=== PATIENT | female | born 1955 | race Caucasian/White ===

== ENCOUNTER 2021-08-25 15:46 | Emergency (ER) | payer MEDICARE, OTHER ==
[~2021-08-25] VITALS: Ht 160 cm; Wt 58.9 kg
--- NOTE | 2021-08-25 16:26 | ED General ---
General Stated Complaint: N/V, DIARRHEA, FEVER, COUGH Source of Information: Patient, Family Exam Limitations: No Limitations History of Present Illness Date Seen by Provider: Aug 25, 2021 Time Seen by Provider: 16:24 Initial Comments To ER by private vehicle from home with reports of diffuse lower abdominal cramping, nausea vomiting diarrhea that began on Sunday of this week (today being ). She is had chills. No cough. She does report body aches. She is not vaccinated against Covid. She is just got here from [place] about a week ago on Sunday with her family for the holidays. Due to the nausea and vomiting she was unable to take her medications for 48 hours now including clonazepam and Effexor. Timing/Duration: 3-4 Days Severity: Moderate Associated Systoms: Headaches, Nausea/Vomiting, Weakness Allergies and Home Medications Allergies Coded Allergies: codeine (Verified Allergy, Unknown, 08/25/21) hydrocodone (Verified Allergy, Unknown, 08/25/21) Patient Home Medication List Home Medication List Reviewed: Yes Review of Systems Review of Systems Constitutional: see HPI, chills, malaise, weakness EENTM: see HPI Respiratory: see HPI; No cough; short of breath Cardiovascular: no symptoms reported Genitourinary: no symptoms reported Musculoskeletal: no symptoms reported Skin: no symptoms reported Psychiatric/Neurological: No Symptoms Reported Hematologic/Lymphatic: No Symptoms Reported Immunological/Allergic: no symptoms reported Physical Exam Vital Signs Vital Signs - First Documented 08/25/21 16:18 Temp 38.1 Pulse 105 Resp 20 B/P (MAP) 175/86 (115) Pulse Ox 95 O2 Delivery Room Air Capillary Refill : Height, Weight, BMI Height: '" Weight: lbs. oz. kg; BMI Method: General Appearance: No Apparent Distress, WD/WN, Anxious, Other (She is ambulatory from the waiting room to room 9 without assistance. Heart rate is 105, oxygen 93 to 98% on room air. Alert and oriented GCS 15. Anxious appearing.) Eyes: Bilateral Eye Normal Inspection, Bilateral Eye PERRL, Bilateral Eye EOMI Neck: Full Range of Motion, Normal Inspection Respiratory: No Accessory Muscle Use, No Respiratory Distress Cardiovascular: Normal Peripheral Pulses, Tachycardia Gastrointestinal: Normal Bowel Sounds, Soft, Tenderness (Suprapubic) Extremity: Normal Capillary Refill, Normal Inspection Neurologic/Psychiatric: Alert, Oriented x3 Skin: Normal Color, Warm/Dry Progress/Results/Core Measures Suspected Sepsis SIRS Temperature: Pulse: Respiratory Rate: Laboratory Tests 08/25/21 16:34: White Blood Count 5.7 Blood Pressure / Mean: Laboratory Tests 08/25/21 16:34: Creatinine 0.80, INR Comment 0.9, Platelet Count 174, Total Bilirubin 0.5 Results/Orders Lab Results Laboratory Tests Test 08/25/21 16:34 08/25/21 18:08 Range/Units White Blood Count 5.7 4.3-11.0 10^3/uL Red Blood Count 4.16 3.80-5.11 10^6/uL Hemoglobin 14.1 11.5-16.0 g/dL Hematocrit 40 35-52 % Mean Corpuscular Volume 95 80-99 fL Mean Corpuscular Hemoglobin 34 25-34 pg Mean Corpuscular Hemoglobin Concent 36 32-36 g/dL Red Cell Distribution Width 11.6 10.0-14.5 % Platelet Count 174 130-400 10^3/uL Mean Platelet Volume 9.3 9.0-12.2 fL Immature Granulocyte % (Auto) 0 % Neutrophils (%) (Auto) 61 42-75 % Lymphocytes (%) (Auto) 20 12-44 % Monocytes (%) (Auto) 17 H 0-12 % Eosinophils (%) (Auto) 1 0-10 % Basophils (%) (Auto) 1 0-10 % Neutrophils # (Auto) 3.5 1.8-7.8 10^3/uL Lymphocytes # (Auto) 1.2 1.0-4.0 10^3/uL Monocytes # (Auto) 1.0 0.0-1.0 10^3/uL Eosinophils # (Auto) 0.0 0.0-0.3 10^3/uL Basophils # (Auto) 0.0 0.0-0.1 10^3/uL Immature Granulocyte # (Auto) 0.0 0.0-0.1 10^3/uL Prothrombin Time 12.1 L 12.2-14.7 SEC INR Comment 0.9 0.8-1.4 Sodium Level 134 L 135-145 MMOL/L Potassium Level 2.9 L 3.6-5.0 MMOL/L Chloride Level 96 L 98-107 MMOL/L Carbon Dioxide Level 22 21-32 MMOL/L Anion Gap 16 H 5-14 MMOL/L Blood Urea Nitrogen 23 H 7-18 MG/DL Creatinine 0.80 0.60-1.30 MG/DL Estimat Glomerular Filtration Rate 71 BUN/Creatinine Ratio 29 Glucose Level 102 70-105 MG/DL Calcium Level 9.4 8.5-10.1 MG/DL Corrected Calcium 9.1 8.5-10.1 MG/DL Total Bilirubin 0.5 0.1-1.0 MG/DL Aspartate Amino Transf (AST/SGOT) 14 5-34 U/L Alanine Aminotransferase (ALT/SGPT) 16 0-55 U/L Alkaline Phosphatase 48 40-136 U/L B-Type Natriuretic Peptide < 10.0 <100.0 PG/ML Total Protein 7.4 6.4-8.2 GM/DL Albumin 4.4 3.2-4.5 GM/DL Lipase 16 8-78 U/L Influenza Type A (RT-PCR) Not Detected Not Detecte Influenza Type B (RT-PCR) Not Detected Not Detecte SARS-CoV-2 RNA (RT-PCR) Not Detected Not Detecte Urine Color YELLOW Urine Clarity CLEAR Urine pH 6.0 5-9 Urine Specific [place] 1.010 L 1.016-1.022 Urine Protein NEGATIVE NEGATIVE Urine Glucose (UA) NEGATIVE NEGATIVE Urine Ketones TRACE H NEGATIVE Urine Nitrite NEGATIVE NEGATIVE Urine Bilirubin NEGATIVE NEGATIVE Urine Urobilinogen 0.2 < = 1.0 MG/DL Urine Leukocyte Esterase NEGATIVE NEGATIVE Urine RBC (Auto) 1+ H NEGATIVE Urine RBC 0-2 /HPF Urine WBC 2-5 /HPF Urine Crystals PRESENT H /LPF Urine Amorphous Sediment FEW MADDY URATES H /LPF Urine Bacteria TRACE /HPF Urine Casts NONE /LPF Urine Mucus NEGATIVE /LPF Urine Culture Indicated NO My Orders Orders - JIM ALDRIDGE APRN Covid 19 Inhouse Test (08/25/21 15:51) Cbc With Automated Diff (08/25/21 16:22) Comprehensive Metabolic Panel (08/25/21 16:22) Ed Iv/Invasive Line Start (08/25/21 16:22) Lipase (08/25/21 16:22) Protime With Inr (08/25/21 16:22) Lactated Ringers (Lr 1000 Ml Iv Solution (08/25/21 16:30) Ondansetron Injection (Zofran Injectio (08/25/21 16:30) Hyoscyamine Sl Tablet (Levsin Sl Tablet) (08/25/21 16:30) Lorazepam Injection (Ativan Injection) (08/25/21 16:30) Bnp Corey (08/25/21 16:23) Chest 1 View, Ap/Pa Only (08/25/21 16:23) Ua Culture If Indicated (08/25/21 16:27) Potassium Chloride (Tablet) (K Dur Table (08/25/21 17:30) Influenza A And B By Pcr (08/25/21 17:34) Ct Abdomen/Pelvis W (08/25/21 17:45) Iohexol Injection (Omnipaque 350 Mg/Ml 1 (08/25/21 18:00) Received Contrast (Hold Metformin- Contr (08/25/21 18:00) Ns (Ivpb) (Sodium Chloride 0.9% Ivpb Bag (08/25/21 18:00) Ns Iv 500 Ml (Sodium Chloride 0.9%) (08/25/21 18:15) Medications Given in ED Current Medications Medications Dose Ordered Sig/Klaus Route Start Time Stop Time Status Last Admin Dose Admin Hyoscyamine Sulfate 0.125 mg ONCE ONCE PO 08/25/21 16:30 08/25/21 16:31 DC 08/25/21 16:41 0.125 MG Iohexol 100 ml ONCE ONCE IV 08/25/21 18:00 08/25/21 18:01 DC 08/25/21 18:11 74 ML Lorazepam 1 mg ONCE ONCE IVP 08/25/21 16:30 08/25/21 16:31 DC 08/25/21 16:41 1 MG Ondansetron HCl 8 mg ONCE ONCE IVP 08/25/21 16:30 08/25/21 16:31 DC 08/25/21 16:41 8 MG Potassium Chloride 60 meq ONCE ONCE PO 08/25/21 17:30 08/25/21 17:31 DC 08/25/21 17:45 60 MEQ Sodium Chloride 100 ml ONCE ONCE IV 08/25/21 18:00 08/25/21 18:01 DC 08/25/21 18:11 80 ML Vital Signs/I&O 08/25/21 16:18 Temp 38.1 Pulse 105 Resp 20 B/P (MAP) 175/86 (115) Pulse Ox 95 O2 Delivery Room Air Capillary Refill : Departure Communication (Admissions) NAME: ROSAURA VILLAGOMEZ [facility] REC#: [id number] PT STATUS: REG ER : 1955 PHYSICIAN: JIM ALDRIDGE APRN ADMIT DATE: 08/25/21/ER Draft Date of Exam:08/25/21 CT ABDOMEN/PELVIS W PROCEDURE: CT abdomen and pelvis with contrast. TECHNIQUE: Multiple contiguous axial images were obtained through the abdomen and pelvis after administration of intravenous contrast. Auto Exposure Controls were utilized during the CT exam to meet ALARA standards for radiation dose reduction. All CT scans use one or more of the following dose optimizing techniques: automated exposure control, MA and/or KvP adjustment based on patient size and exam type or iterative reconstruction. INDICATION: Nausea, vomiting, fever, diarrhea, suprapubic pain. Prior hysterectomy and appendectomy. COMPARISON: None FINDINGS: Lung bases are clear. The heart is normal in size. There is a minimal pericardial effusion. The liver demonstrates no focal lesions. The spleen appears normal. The pancreas is normal. The adrenal glands appear normal. The kidneys demonstrate no enhancing masses. Renal enhancement appears normal. There does appear to be a nonobstructing calculus in the superior left kidney which measures 7 mm. No obstructing calculi are seen. There are phleboliths in the pelvis. There is hyperdense material in the stomach. The stomach is decompressed. There are fluid-filled loops of small bowel, without high-grade distention to suggest obstruction. The appendix is not seen. The colon is fluid-filled, consistent with the history of diarrhea. There does appear to be mild wall thickening of the colon. No free fluid or free air is seen. No acute osseous abnormality is identified. There are degenerative changes and postsurgical changes in the spine. IMPRESSION: 1. Fluid-filled loops of small bowel with mild colonic wall thickening. This could represent an enterocolitis. No obstruction is seen. 2. Nonobstructing calculus in the left kidney. No obstructing calculi are seen. 3. Minimal pericardial effusion. Dictated on workstation # [id number] Dict: 08/25/214 Trans: 08/25/21 1822 [facility] [id number] Interpreted by: PRISCA SHEN MD Electronically signed by: Impression Primary Impression: Gastroenteritis Disposition: 01 HOME, SELF-CARE Condition: Improved Departure-Patient Inst. Decision time for Depature: 18:42 Referrals: NO,LOCAL PHYSICIAN (PCP/Family) Primary Care Physician Patient Instructions: Diarrhea in Adolescents and Adults Add. Discharge Instructions: 1. Try to stick with clear liquids such as Pedialyte, Gatorade, Jell-O, chicken broth for the next 24 hours. Take the nausea medication as needed and return to ER for any worsening. JIM ALDRIDGE [employer]ORIST DESIGNER Aug 25, 2021 16:26
[2021-08-25] MEDS ORDERED: LORazepam INJ 2 MG/ML (ATIVAN) VIAL IVP ONE (16:30)
[2021-08-25] MEDS ORDERED: LACTATED RINGERS 1,000 ML IV SCH (16:30)
[2021-08-25] MEDS ORDERED: HYOSCYAMINE 0.125 MG (LEVSIN) TAB PO ONE (16:30)
[2021-08-25] MEDS ORDERED: ONDANSETRON 4 MG/2 ML (SDV) Z0FRAN IVP ONE (16:30)
[2021-08-25 16:47] LABS: BASOPHILS % (AUTO) 1 % (0-10); EOSINOPHILS % (AUTO) 1 % (0-10); HEMATOCRIT 40 % (35-52); HEMOGLOBIN 14.1 g/dL (11.5-16.0); LYMPHOCYTES # (AUTO) 1.2 10^3/uL (1.0-4.0); LYMPHOCYTES % (AUTO) 20 % (12-44); MEAN CORPUSCULAR HEMOGLOBIN 34 pg (25-34); MEAN CORPUSCULAR HGB CONC 36 g/dL (32-36); MEAN CORPUSCULAR VOLUME 95 fL (80-99); MEAN PLATELET VOLUME 9.3 fL (9.0-12.2); MONOCYTES % (AUTO) 17 % (0-12); NEUTROPHILS # (AUTO) 3.5 10^3/uL (1.8-7.8); NEUTROPHILS % (AUTO) 61 % (42-75); PLATELET COUNT 174 10^3/uL (130-400); WHITE BLOOD COUNT 5.7 10^3/uL (4.3-11.0)
--- NOTE | 2021-08-25 16:50 | Diagnostic Imaging Report ---
PATIENT HISTORY: dyspnea. TECHNIQUE: Single frontal view of the chest. COMPARISON: None. FINDINGS: The lung volumes are normal. No focal consolidation is seen. No large pleural effusion or pneumothorax is seen. The cardiomediastinal silhouette is normal in size and contour. No acute osseous abnormality is seen. IMPRESSION: No acute pulmonary abnormality seen. Dictated by: Dictated on workstation # [id number]
[2021-08-25 16:51] LABS: ALBUMIN 4.4 GM/DL (3.2-4.5); INR 0.9 (0.8-1.4); POTASSIUM 2.9 MMOL/L (3.6-5.0); PROTHROMBIN TIME PATIENT 12.1 SEC (12.2-14.7)
[2021-08-25 16:52] LABS: CALCIUM 9.4 MG/DL (8.5-10.1)
[2021-08-25 16:53] LABS: TOTAL PROTEIN 7.4 GM/DL (6.4-8.2)
[2021-08-25 16:55] LABS: BILIRUBIN,TOTAL 0.5 MG/DL (0.1-1.0)
[2021-08-25 16:57] LABS: CREATININE SERUM 0.8 MG/DL (0.60-1.30)
[2021-08-25] MEDS ORDERED: KCL 20 MEQ TAB (K-DUR) PO ONE (17:30)
[2021-08-25] MEDS ORDERED: NS 100 ML (IVPB) BAG IV ONE (18:00)
[2021-08-25] MEDS ORDERED: IOHEXOL 350 MG/ML 100 ML (OMNIPAQUE 350) VIAL IV ONE (18:00)
[2021-08-25] MEDS ORDERED: HOLD METFORMIN - RECEIVED CONTRAST 20 ML VIAL IV SCH (18:00)
[2021-08-25 18:10] LABS: BILIRUBIN,URINE NEGATIVE (NEGATIVE); CLARITY,URINE CLEAR; COLOR,URINE YELLOW; GLUCOSE, URINE (UA) NEGATIVE (NEGATIVE); KETONES,URINE TRACE (NEGATIVE); LEUKOCYTE ESTERASE ,URINE NEGATIVE (NEGATIVE); NITRITE,URINE NEGATIVE (NEGATIVE); PROTEIN,URINE NEGATIVE (NEGATIVE)
[2021-08-25] MEDS ORDERED: NS IV 500 ML 500 ML IV SCH (18:15)
--- NOTE | 2021-08-25 18:24 | Diagnostic Imaging Report ---
PROCEDURE: CT abdomen and pelvis with contrast. TECHNIQUE: Multiple contiguous axial images were obtained through the abdomen and pelvis after administration of intravenous contrast. Auto Exposure Controls were utilized during the CT exam to meet ALARA standards for radiation dose reduction. All CT scans use one or more of the following dose optimizing techniques: automated exposure control, MA and/or KvP adjustment based on patient size and exam type or iterative reconstruction. INDICATION: Nausea, vomiting, fever, diarrhea, suprapubic pain. Prior hysterectomy and appendectomy. COMPARISON: None FINDINGS: Lung bases are clear. The heart is normal in size. There is a minimal pericardial effusion. The liver demonstrates no focal lesions. The spleen appears normal. The pancreas is normal. The adrenal glands appear normal. The kidneys demonstrate no enhancing masses. Renal enhancement appears normal. There does appear to be a nonobstructing calculus in the superior left kidney which measures 7 mm. No obstructing calculi are seen. There are phleboliths in the pelvis. There is hyperdense material in the stomach. The stomach is decompressed. There are fluid-filled loops of small bowel, without high-grade distention to suggest obstruction. The appendix is not seen. The colon is fluid-filled, consistent with the history of diarrhea. There does appear to be mild wall thickening of the colon. No free fluid or free air is seen. No acute osseous abnormality is identified. There are degenerative changes and postsurgical changes in the spine. IMPRESSION: 1. Fluid-filled loops of small bowel with mild colonic wall thickening. This could represent an enterocolitis. No obstruction is seen. 2. Nonobstructing calculus in the left kidney. No obstructing calculi are seen. 3. Minimal pericardial effusion. Dictated by: Dictated on workstation # [id number]
[2021-08-25 18:29] LABS: AMORPHOUS SEDIMENT,UR FEW AMOR URATES /LPF; BACTERIA,URINE TRACE /HPF; RBC,URINE 0-2 /HPF
[2021-08-25] MEDS ORDERED: RX-ONDANSETRON 4 MG ODT (ZOFRAN) PPK #4 PO STA (18:43)
[2021-08-25 19:10] VITALS: BP 127/53
== END 2021-08-25 19:11 | disposition home or self-care (01) ==
LOC: ER 15:50
DX: K52.9 Noninfective gastroenteritis and colitis, unspecified (principal); R00.0 Tachycardia, unspecified; Z20.822 Contact with and (suspected) exposure to COVID-19
CPT/HCPCS: 36415; 71045; 74177; 80053; 81000; 83690; 83880; 85025; 85610; 87636; 96361; 96374; 96375